=== PATIENT | female | born 1985 | race Caucasian/White ===

== ENCOUNTER → 2017-02-13 | Outpatient (CLI) | payer OTHER ==
[~2017-02-13] MED LIST: B-COTAB53 PO; CHOL100010 PO; SPR28 PO
== END | disposition home or self-care (01) ==
LOC: C.PAPS 09:29
PROVIDERS: ATTEND Obstetrics & Gynecology
DX: Z12.4 Encounter for screening for malignant neoplasm of cervix (principal)

== ENCOUNTER → 2017-04-17 | Outpatient (CLI) | payer OTHER ==
[~2017-04-17] MED LIST changes: -SPR28 PO
[2017-04-17 12:39] LABS: BASO % 0.2 %; BASO ABS # 0.01 K/uL (0-0.2); COMPLETE YES; EOS % 2.5 %; HEMATOCRIT 40.6 % (37-47); IG% 0.2 %; MEAN CELL VOLUME 88.1 fL (80-100); MEAN CORPUSCULAR HEMOGLOBIN 30.4 pg (25-34); MEAN CORPUSCULAR HGB CONC 34.5 g/dl (32-36); MEAN PLATELET VOLUME 9.9 fL (7.4-10.4); MONO % 6.8 %; NEUT % 51.3 %; PLATELET COUNT 185 K/uL (130-400); RED BLOOD COUNT 4.61 M/uL (4.2-5.4); WHITE BLOOD COUNT 5.13 K/uL (4.8-10.8)
[2017-04-17 13:15] LABS: PREG INTERNAL NEGATIVE QC NEG CLEAR BACKGROUND; PREG INTERNAL POSITIVE QC POS CONTROL LINE
== END | disposition home or self-care (01) ==
LOC: C.LAB 10:59
PROVIDERS: ATTEND Obstetrics & Gynecology
DX: Z01.812 Encounter for preprocedural laboratory examination (principal); Z30.2 Encounter for sterilization

== ENCOUNTER → 2017-04-20 | Day surgery (SDC) | payer OTHER ==
[2017-04-11 14:30] VITALS: Ht 165.1 cm; Wt 62.7 kg
--- NOTE | 2017-04-17 10:24 | HISTORY & PHYSICAL EXAMINATION ---
DATE OF ADMISSION: 04/20/2017 CHIEF COMPLAINT: Desire for permanent sterilization. Desire for removal of 2 large moles. HISTORY OF PRESENT ILLNESS: The patient is a 32-year-old 2, para 2. General health is good. She is on no chronic pills or medications. She is on no form of control. The patient has not done well on oral contraceptives. She had a lot of side effects. She basically requests permanent sterilization. She has been informed of the procedure of tubal ligation including the fact that this procedure is intended to result in permanent and irreversible sterility, but there are alternative forms of control such as the pill and IUD and that occasionally, these tubal ligations will fail and the patient gets despite having had her tubes tied. Her periods are described as regular, every 28 days. Last menstrual period was 03/17/2017. She also requests at the time of surgery she have 2 large moles removed. One is in the left lower quadrant of the abdomen and other one is on the left labia majora. Presently, being scheduled for laparoscopic tubal ligation and removal with 2 large verrucous moles. PAST MEDICAL HISTORY: She has 2 children in good health. ALLERGIES: No known drug allergies. PAST SURGICAL HISTORY: No previous surgery. MEDICAL HISTORY: No history of rheumatic fever, heart disease, heart murmur, diabetes, or tuberculosis. SOCIAL HISTORY: No smoking. No excessive alcohol intake. Works at a [employer]. FAMILY HISTORY: Mom is 54 in good health. Father's medical history is unknown. Two brothers in good health. REVIEW OF SYSTEMS: HEAD: No symptoms of frequent or severe headaches. EYES: No symptoms of blurred vision or double vision. EARS: No symptoms of frequent ear infections or difficulty hearing. NOSE: No symptoms of frequent nosebleeds or difficulty breathing through her nose. PHYSICAL EXAMINATION: GENERAL: Well-developed and well-nourished 32-year-old white female, alert, oriented x3 and cooperative, in no acute distress, appears her stated age. EYES: Conjunctivae are pink. Sclerae white. No evidence of jaundice. EARS: Had normal light reflex bilaterally. NOSE: Had normal mucosa. Septum is midline. There were no polyps. THROAT: No erythema or evidence of infection. Teeth are in good state of repair. HEAD: Normocephalic. Normal distribution of hair. NECK: Supple. Trachea midline. Thyroid is not enlarged. There is no adenopathy appreciated. Both carotids are of good intensity. CHEST: Clear to auscultation and percussion. No wheezes, rales or rhonchi appreciated. HEART: Had regular rhythm. S1 and S2 are normal. BREASTS: Normal. ABDOMEN: Soft and nontender. There was a large mole in the left lower quadrant. PELVIC: Revealed a normal appearing cervix. Uterus was normal size and anteverted. There are no adnexal masses appreciated. There was a large mole on the left labia majora. MUSCULOSKELETAL: Revealed no calf tenderness. IMPRESSIONS OF THIS CASE: Desire for permanent sterilization and desire for removal of 2 large skin lesions. MTDD
[~2017-04-20] VITALS: Ht 165.1 cm; Wt 62.7 kg
[~2017-04-20] MED LIST changes: +ATROPINE SULFATE 0.1 MG/ML 5ML SYR IV PRN; +BUPIVACAINE/EPINEPHRINE 0.5% MPF 1:200,000 10 ML VIAL ONE; +DEXAMETHASONE SOD INJ 4 MG/ML VIAL ONE; +EpHEDrine SULFATE INJ 50 MG/ML AMP IV PRN; +EpHEDrine SULFATE INJ 50 MG/ML AMP ONE; +FENTANYL CITRATE INJ 50 MCG/1 ML 2 ML VIAL IV PRN; +FENTANYL CITRATE INJ 50 MCG/1 ML 2 ML VIAL ONE; +GLYCOPYRROLATE INJ 0.2 MG/ML VIAL ONE; +HYDROCODONE/ACETAMOPHEN 5/325MG TAB PO PRN; +HYDROmorphone INJ 1 MG/ML SYR IV PRN; +IBUPROFEN 600 MG TAB PO PRN; +KETOROLAC TROMETHAMINE 30 MG/ML VIAL IV. PRN; +LACTATED RINGER'S 1000ML 1,000 ML IV SCH; +LIDOCAINE HCL 2% 2 ML VIAL (20MG/ML) ONE; +MIDAZOLAM HCL 1 MG/ML 2ML VIAL ONE; +NEOSTIGMINE METHYLSULFATE 5 MG/5 ML SYR ONE; +ONDANSETRON INJ 2 MG/ML 2 ML VIAL IV PRN; +ONDANSETRON INJ 2 MG/ML 2 ML VIAL ONE; +OXYCODONE/ACETAMINOPHEN 5-325 TAB PO PRN; +PHENYLEPHRINE HCL INJ 10 MG/ML VIAL ONE; +PROMETHAZINE HCL INJ 12.5 MG in SODIUM CHLORIDE 0.9% 50ML 50 ML IV PRN; +PROPOFOL IV EMULSION 10 MG/ML 20 ML VIAL IV ONE; +ROCURONIUM BROMIDE 10 MG/ML 5 ML VIAL ONE; +SODIUM CHLORIDE 0.9% 1000ML 1,000 ML IV SCH; +SODIUM CHLORIDE 0.9% INJ 10 ML VIAL ONE; +SUCCINYLCHOLINE CHLORIDE 20 MG/ML 10 ML VIAL IV ONE
--- NOTE | 2017-04-20 11:32 | History & Physical Bridge Note ---
H&P Re-Evaluation Bridge Note: I have examined the patient, reviewed the History & Physical and in the interval since the performance of the History & Physical I have noted the following changes of clinical significance: No changes noted
--- NOTE | 2017-04-20 13:26 | [facility] Operative Report ---
Operative Report Operative Date Apr 20, 2017. Pre-Operative Diagnosis Desires Sterilization, Desires moles to be removed from left hip & left groin Post-Operative Diagnosis Same Procedure(s) Performed Laparoscopic Tubal Sterilization; Removal Of 2 Moles-Abdomen, Left Leg Crease Surgeon Dr. Anne Cae Engineer Surgeon(s) None Estimated Blood Loss 2 ml Findings NORMAL PELVIS 2 LARGE MOLES Specimens A.) Left groin mole B.) Left hip mole Complication(s) None Disposition Recovery Room / PACU I attest to the content of the Intraoperative Record and any orders documented therein. Any exceptions are noted below.
--- NOTE | 2017-04-20 13:30 | Discharge Instructions-SurgCtr ---
Discharge Instructions Date of Service Apr 20, 2017. Visit Reason for Visit: Desire For Sterilization Discharge Discharge Diagnosis / Problem: DESIRE FOR PERMANENT STERILIZATION REMOVAL OF TWO LARGE MOLES Discharge Goals Goal(s): Improve function, Learn about illness Activity Recommendations Activity Limitations: as noted below ACTIVITY RECOMMENDATIONS: * Rest the first 2-3 days. You should be back to your normal activity levels by day 3. * No heavy lifting for 2 weeks. * No intercourse, tampons or douching for 1-2 weeks. * You may shower the next day. * Do not drive anytime that you are taking narcotic pain medicines. RETURN TO SCHOOL/WORK: * May return to school or work after 2-3 days. DIET: Nausea may occur in the immediate post-operative period. If so, take clear liquids such as tea, bouillon, apple juice until all nausea has subsided, then resume usual diet. MEDICATIONS: Resume previous medications unless instructed otherwise by your surgeon. Ibuprofen 200mg 2-3 tablets every 4-6 hours as needed -- OR -- Aleve 2 tablets every 8-12 hours as needed for post-operative discomfort Medications are over the counter. Tylenol may be used if above medications are contraindicated or not preferred. Medication should be taken with food or milk. Do not take on an empty stomach. SPECIAL CARE INSTRUCTIONS: * Check temperature twice daily for one week. report any elevation over 101 degrees. * You may experience some vagina spotting and/or bleeding. This is normal for 1 -2 weeks and should not be heavier than a normal period. If it is unusual in amount, call your physician. * Post-operative discomfort may consist of a sore throat, a "bloated" feeling and pain in the shoulders. these are normal symptoms, which usually only last for 2-3 days. * Remove band-aids tomorrow and shower. There is no need to replace band-aids unless there is drainage or discomfort. FOLLOW UP VISIT: Call your doctor's office for a post-operative 2 week visit if not already scheduled. Anesthesia . Post Anesthesia Instructions: If you have had General Anesthesia or IV Sedation: * Do not drive today. * Resume driving when surgeon permits. * Do not make important decisions or sign legal documents today. * Call surgeon for: 1. Temperature elevations greater than 101 degrees F. 2. Uncontrollable pain. 3. Excessive bleeding. 4. Persistent nausea and vomiting. 5. Medication intolerance (nausea, vomiting or rash). * For nausea and vomiting use only clear liquids such as: tea, soda, bouillon until nausea subsides, then gradually increase diet as tolerated. * If you have any concerns or questions, call your surgeon's office. If physician is unavailable and it is an emergency, call 911 or go to the nearest emergency room. . Instructions / Follow-Up Instructions / Follow-Up SPECIAL CARE INSTRUCTIONS: * Check temperature twice daily for one week. Report any elevation over 100.4 degrees Fahrenheit (38.0 degrees Celsius). * Call office in the next few days for return appointment. * You may experience some vaginal spotting and/or bleeding, this is normal for one or two weeks and should not alarm you. * Post-operative discomfort may consist of a sore throat, a "bloated" feeling and pain in the shoulders. These are normal symptoms which usually only last for two or three days. FOLLOW UP VISIT: Keep any scheduled doctor appointments. Diet Recommendations Home Diet: resume previous diet Procedures Procedures Performed: Laparoscopic Tubal Sterilization; Removal Of 2 Moles-Abdomen, Left Leg Crease Pending Studies Studies pending at discharge: no Medical Emergencies . Who to Call and When: Medical Emergencies: If at any time you feel your situation is an emergency, please call 911 immediately. . Non-Emergent Contact Non-Emergency issues call your: Electrical Contacts Adjuster Call Non-Emergent contact if: temperature is above 100.5 . . "Provider Documentation" section prepared by James Anne. .
[2017-04-20 14:34] VITALS: TEMP 37.3
[2017-04-20 14:51] VITALS: BP 125/85; PULSE 68; O2SAT 99
--- NOTE | 2017-04-20 15:35 | Anesthesia Progress Nt - [facility] ---
Anesthesia Post Op Note Date & Time Apr 20, 2017 at 15:35 Vital Signs Pain Intensity: 0 Vital Signs Past 12 Hours Date Time Temp Pulse Resp B/P (MAP) Pulse Ox O2 Delivery O2 Flow Rate FiO2 04/20/17 14:51 68 16 125/85 (98) 99 Room Air 04/20/17 14:34 37.3 61 16 134/88 (103) 100 Room Air 04/20/17 14:16 57 12 100 04/20/17 14:16 57 12 04/20/17 14:15 131/90 04/20/17 14:14 60 16 04/20/17 14:14 59 16 100 04/20/17 14:10 123/88 04/20/17 14:09 36.8 57 12 131/90 100 Room Air 04/20/17 14:09 66 14 04/20/17 14:09 66 14 100 04/20/17 14:05 122/83 04/20/17 14:04 57 12 04/20/17 14:04 58 12 100 04/20/17 14:00 123/84 04/20/17 13:59 63 14 04/20/17 13:59 63 14 100 04/20/17 13:55 120/81 04/20/17 13:54 57 13 04/20/17 13:54 58 13 100 04/20/17 13:50 131/84 04/20/17 13:49 64 12 04/20/17 13:49 65 12 100 04/20/17 13:45 116/86 04/20/17 13:44 68 14 04/20/17 13:44 68 14 100 04/20/17 13:40 128/81 04/20/17 13:39 77 10 04/20/17 13:39 77 10 100 04/20/17 13:35 122/81 04/20/17 13:34 71 11 100 04/20/17 13:34 75 11 04/20/17 13:30 123/74 04/20/17 13:29 36.2 96 16 135/82 100 Mask 6 04/20/17 13:29 92 11 04/20/17 13:29 93 11 135/82 100 04/20/17 11:03 37.0 74 20 146/97 (113) 100 Room Air 141/101 (114) Notes Mental Status: alert / awake / arousable, participated in evaluation Pt Amnestic to Procedure: Yes Nausea / Vomiting: adequately controlled Pain: adequately controlled Airway Patency, RR, SpO2: stable & adequate BP & HR: stable & adequate Hydration State: stable & adequate Anesthetic Complications: no major complications apparent
--- NOTE | 2017-04-21 00:08 | OPERATIVE REPORT ---
DATE OF OPERATION: 04/20/2017 PREOPERATIVE DIAGNOSES: Desire for permanent sterilization and desire for removal of 2 large warts. POSTOPERATIVE DIAGNOSES: Same. Normal pelvis. SURGEON: Dr. Anne. ESTIMATED BLOOD LOSS: 15 mL ANESTHESIA: General intubation. OPERATIVE FINDINGS AND PROCEDURE: The patient was brought to the OR table, correctly identified by armband and conversation. General anesthesia was administered. Perineum and lower abdomen were painted with Betadine paint and draped in the usual sterile fashion. Catheter was used to empty the bladder. A weighted speculum was placed in the posterior vagina. Anterior lip of cervix grasped with single tooth tenaculum and an acorn cannula was inserted into the cervical canal for manipulation of the uterus. Attention was now turned to the lower abdomen. Subumbilical area was infiltrated with local with epinephrine. Stab wound was placed and then a Veress needle was inserted into the abdominal cavity and 2-1/2 liters of carbon dioxide gas was passed under low pressure. The incision was then widened laterally, and a large cannula and trocar were inserted. Trocar was removed. Laparoscope was inserted. Good visualization of pelvic structures was obtained at this time. A second puncture site was made in the midline, 3 fingerbreadths above the pubic symphysis. This area was infiltrated with local with epinephrine. Stab wound was placed, and a 5 mm trocar and sleeve were inserted under direct visualization. Then, a blunt probe was used to manipulate the bowels out of the pelvic cavity along with the head down position. Appendix was easily visualized and photographed. Both ovaries were mobile, photographed. Cul-de-sac was photographed. The fimbria of each tube was identified. A bipolar cauterization forceps was inserted into the abdominal cavity and each tube was cauterized in the mid portion with a bipolar cauterization forceps, the burn going through the tube and into the meso in 2 consecutive and adjacent areas. After burning these areas, I used laparoscopic scissors to cut the cauterized area in the center, thus the ends of the tube on both the right and left side. Photographs were taken of the cauterized and cut fallopian tubes. Then, gas was expressed manually. Instruments were removed and incision was closed with interrupted Vicryl suture. Attention was then turned to the 2 large moles, both on the left side. The largest one was right above the pelvic brim and the second one was down in the crease of the leg, toward the mons. Each mole was infiltrated with local with epinephrine which welted the mole up and then excised in an elliptical fashion. A 2-layer closure was then done with Vicryl, interrupted sutures of Vicryl were used to approximate the skin edges. For the smaller one, I used 2 interrupted sutures of Vicryl, and for the larger one, I used 4. I then approximated the skin edges themselves with a mattress suture of Vicryl, about 3 sutures on the smaller one and 4 sutures on the larger one. Following this, hemostasis was good. The patient tolerated the procedure well and left the OR in good condition. I attest to the content of the Intraoperative Record and any orders documented therein. Any exception s are noted below.
== END | disposition home or self-care (01) ==
LOC: X.SURG 10:47
PROVIDERS: ATTEND Obstetrics & Gynecology
DX: Z30.2 Encounter for sterilization (principal); D22.5 Melanocytic nevi of trunk; D22.72 Melanocytic nevi of left lower limb, including hip

== ENCOUNTER → 2017-09-06 | Outpatient (CLI) | payer OTHER ==
[~2017-09-06] MED LIST changes: -ATROPINE SULFATE 0.1 MG/ML 5ML SYR IV PRN; -BUPIVACAINE/EPINEPHRINE 0.5% MPF 1:200,000 10 ML VIAL ONE; -DEXAMETHASONE SOD INJ 4 MG/ML VIAL ONE; -EpHEDrine SULFATE INJ 50 MG/ML AMP IV PRN; -EpHEDrine SULFATE INJ 50 MG/ML AMP ONE; -FENTANYL CITRATE INJ 50 MCG/1 ML 2 ML VIAL IV PRN; -FENTANYL CITRATE INJ 50 MCG/1 ML 2 ML VIAL ONE; -GLYCOPYRROLATE INJ 0.2 MG/ML VIAL ONE; -HYDROCODONE/ACETAMOPHEN 5/325MG TAB PO PRN; -HYDROmorphone INJ 1 MG/ML SYR IV PRN; -IBUPROFEN 600 MG TAB PO PRN; -KETOROLAC TROMETHAMINE 30 MG/ML VIAL IV. PRN; -LACTATED RINGER'S 1000ML 1,000 ML IV SCH; -LIDOCAINE HCL 2% 2 ML VIAL (20MG/ML) ONE; -MIDAZOLAM HCL 1 MG/ML 2ML VIAL ONE; -NEOSTIGMINE METHYLSULFATE 5 MG/5 ML SYR ONE; -ONDANSETRON INJ 2 MG/ML 2 ML VIAL IV PRN; -ONDANSETRON INJ 2 MG/ML 2 ML VIAL ONE; -OXYCODONE/ACETAMINOPHEN 5-325 TAB PO PRN; -PHENYLEPHRINE HCL INJ 10 MG/ML VIAL ONE; -PROMETHAZINE HCL INJ 12.5 MG in SODIUM CHLORIDE 0.9% 50ML 50 ML IV PRN; -PROPOFOL IV EMULSION 10 MG/ML 20 ML VIAL IV ONE; -ROCURONIUM BROMIDE 10 MG/ML 5 ML VIAL ONE; -SODIUM CHLORIDE 0.9% 1000ML 1,000 ML IV SCH; -SODIUM CHLORIDE 0.9% INJ 10 ML VIAL ONE; -SUCCINYLCHOLINE CHLORIDE 20 MG/ML 10 ML VIAL IV ONE
[2017-09-06 14:37] LABS: HEMATOCRIT 39.6 % (37-47)
== END | disposition home or self-care (01) ==
LOC: C.LAB 14:02
PROVIDERS: ATTEND Obstetrics & Gynecology
DX: R68.82 Decreased libido (principal)